=== PATIENT | female | born 1945 | race Caucasian/White ===

== ENCOUNTER 2024-04-17 10:20 | Outpatient (REF) | payer MEDICARE, BC, SELFPAY ==
[2024-04-17 15:04] LABS: CT PCR NOT DETECTED (Not Detect.); NG PCR NOT DETECTED (Not Detect.)
[2024-04-18 08:07] LABS: HBsAGNum1 0.23 S/CO (0.00-0.99); HIV AB/AG Nonreactive (Nonreactive); HIV Num 1 0.04 S/CO (0.00-0.99); Hepatitis B Surface Antigen Negative (Negative); ~Hepatitis C Antibody Nonreactive (Nonreactive)
[2024-04-18 08:23] LABS: Syphilis Screen Nonreactive (Nonreactive)
== END 2024-04-17 10:21 | disposition home or self-care (01) ==
LOC: HO.MANLDS 10:20
PROVIDERS: Visit Provider Physician Assistant
DX: Z11.3 Encounter for screening for infections with a predominantly sexual mode of transmission (principal)
CPT/HCPCS: 86780; 86803; 87340; 87389; 87491; 87591

== ENCOUNTER 2025-02-14 15:24 | Outpatient (AMB) | payer MEDICARE, BC, SELFPAY ==
--- NOTE | 2025-02-14 15:52 | A.OFFVIS_ITS ---
Vital Signs 02/14/25 15:53 Height 5 ft 1 in Weight 93 lb 6 oz BMI 17.6 BP 150/76 H Blood Pressure Location Rt brachial Position Sitting Pulse 73 Pulse Source Pulse Oximeter Pulse Oximetry (%) 97 Oxygen Delivery Method Room Air Intake Visit Reasons: Nontuberculous Mycobacterial Infection Allergies amoxicillin (From Augmentin) Allergy (Intermediate, Verified 02/14/25 16:25) Hives clavulanic acid (From Augmentin) Allergy (Intermediate, Verified 02/14/25 16:25) Hives levofloxacin (From Levaquin) Allergy (Intermediate, Verified 02/14/25 16:25) Hives Latex, Natural Rubber Allergy (Mild, Verified 02/14/25 16:00) Rash enoxaparin (From Lovenox) Allergy (Verified 02/14/25 16:00) Difficulty Breathing HPI HPI Nontuberculous Mycobacterial Infection: Details: Sanjay is a pleasant 79-year-old female, never smoker, with h/o ovarian cancer s/p chemo and hysertectomy 2007 . She was referred by PCP for pulmonary evaluation. She reports persistent respiratory symptoms following pneumonia. Her symptoms began on November 26 with severe illness, leading her to seek urgent care on November 28, where she was prescribed a ten day course of Augmentin. Despite treatment, her symptoms persisted, and she was prescribed levofloxacin, which caused gastrointestinal upset and could not tolerate. A second course of Augmentin was given, along with prednisone, but she continued to feel unwell and experienced significant fatigue. A CT scan performed four weeks prior to the visit showed multifocal tree-in-bud opacities and mild bronchiectasis, suggesting an infectious or inflammatory process. There is a suspicion of nontuberculous mycobacterial disease, but no definitive diagnosis has been made without sputum testing. She reports moderate improvement since antibiotics however continues with cough, dyspnea and fatigue. The patient has a history of ovarian cancer treated with hysterectomy and chemotherapy, which caused significant hematological side effects. She denies any history of asthma but reports seasonal allergies and past exposure to secondhand smoke. Review of Systems Const Denies chills, Denies excessive sweating, Denies fever(s), Denies headache(s) and Denies night sweats Eyes Denies dry eyes, Denies irritation and Denies itchy eyes ENT Reports Normal hearing present, Denies headache(s), Denies nasal congestion, Denies nasal discharge, Denies post nasal drip and Denies sore throat Card Denies chest pain, Denies chest pain at rest, Denies chest pain with activity, Denies claudication, Denies leg edema, Reports dyspnea on exertion, Denies o rthopnea and Denies paroxysmal nocturnal dyspnea Resp Reports chest congestion, Reports cough, Denies excessive phlegm production, Denies pain on inspiration, Denies pain with cough, Reports dyspnea on exertion, Denies stridor and Denies wheezing Musc Denies myalgias Neuro Reports Normal hearing present and Denies headache(s) Endo Denies excessive sweating Epifanio/Lymph Denies lymphadenopathy Aller/Immun Denies itchy eyes, Denies seasonal rhinorrhea and Denies wheezing Physical Exam Vital Signs: Last Vital Signs Pulse 73 02/14/25 15:53 BP 150/76 H 02/14/25 15:53 Pulse Ox 97 02/14/25 15:53 Oxygen Delivery Method Room Air 02/14/25 15:53 BMI result Body Mass Index 17.6 Const General: cooperative, healthy appearing, comfortable, no acute distress, well developed and alert Nutritional Appearance: thin Orientation/consciousness: patient oriented x3 Limitations: no limitations HEENT Head: Yes normal to inspection, Yes normocephalic and Yes atraumatic Ears: hearing grossly normal bilaterally and external ears normal Eyes General: appearance normal, both eyes and all related structures Eyelids: Yes eyelids normal Sclerae: sclerae normal EOM: EOMs intact bilaterally Neck Neck: Yes normal visual inspection and Yes no lymphadenopathy Lymphatic: no lymphadenopathy noted Chest Chest palpation & inspection: normal inspection of the chest Resp Effort & Inspection: normal respiratory effort, able to speak in complete sentences, no audible wheezes, no cough, no stridor, not tachypneic, no tripod positioning and no use of accessory muscles Auscultation: clear to auscultation bilaterally Cardio Jugular venous distension: no JVD Rate: regular rate Rhythm: regular rhythm Skin Other: warm, dry General skin exam: no rashes or lesions noted Neuro General: patient oriented x3 Cranial nerves: Yes Normal hearing present Cognition (Neuro): normal cognition Gait exam (Neuro): Normal gait present Extrem General: Yes normal to inspection, Yes capillary refill normal, Yes no clubbing, cyanosis or edema and Yes no pedal edema Psych Appearance: grossly normal and well kempt Speech and movement: Normal speech and movement present and Clear speech present Affect: normal affect Attitude: cooperative Thought process: Normal thought process present Thought content: Normal thought content present Insight: Good insight present (Psych) Judgement: Good judgement present (Psych) Assessment & Plan Assessment & Plan (1) Cough: Code(s): R05.9 - Cough, unspecified Category: Medical (2) Dyspnea on exertion: Code(s): R06.09 - Other forms of dyspnea Category: Medical Plan We discussed the findings of the CT scan, which showed multifocal tree-in-bud opacities and mild bronchiectasis, suggesting an infectious or inflammatory process. We reviewed the possibility of nontuberculous mycobacterial disease and the need for sputum culture or bronchoscopy if symptoms persist. Will also attempt to obtain images from prior CT. Explained the potential need for a repeat CT scan in six to eight weeks to monitor changes since she had an additional course of antibiotics and presnisone. Emphasized the importance of avoiding allergens and irritants. All questions were answered and patient is in agreement of plan. Will follow up in 4-6 weeks or sooner if needed. Coding Level of Care Code New Pt Level 4 (30778) Diagnoses Cough R05.9 Dyspnea on exertion R06.09
[2025-02-14 15:53] VITALS: BP 150/76; PULSE 73; O2SAT 97; BMI 17.6
== END 2025-02-14 16:51 | disposition home or self-care (01) ==
LOC: HO.HPSW 15:25
PROVIDERS: PCP Physician Assistant; Referring Provider Physician Assistant; Visit Provider Nurse Practitioner Family
DX: R05.9 Cough, unspecified (principal); R06.09 Other forms of dyspnea
CPT/HCPCS: 99204

== ENCOUNTER → 2025-02-14 15:24 | Outpatient (BNVA) | payer MEDICARE, BC, SELFPAY | PROVIDERS: PCP Physician Assistant; Referring Provider Physician Assistant; Visit Provider Nurse Practitioner Family | DX: R06.09 Other forms of dyspnea (principal); R05.9 Cough, unspecified | CPT/HCPCS: 99202 ==

== ENCOUNTER 2025-04-03 15:10 | Outpatient (REF) | payer MEDICARE, BC, SELFPAY ==
--- OUTSIDE RECORDS SUMMARY | 2025-04-03 15:13 | XMS_ITS | Clinical Summary ---
Author Organization [facility] Address [address] [place] [address] Care Team Providers Care Solution Specialist Name Role Phone Nadiya Bowen PA-C Primary Care Provider [phone] Social History Tobacco Use Types Packs/Day Years Used Date Smoking Tobacco: Never Assessed Comments Unknown Sex and Gender Information Value Date Recorded Sex Assigned at Female 06/06/2023 4:13 PM EDT Legal Sex Female 11:43 AM EDT Gender Identity Female 06/06/2023 4:13 PM EDT Sexual Orientation Heterosexual (straight) 06/06 4:13 PM EDT Last Filed Vital Signs Vital Sign Reading Time Taken Comments Blood Pressure - - Pulse - - Temperature - - Respiratory Rate - - Oxygen Saturation - - Inhaled Oxygen Concentration - - Weight 44 kg (97 lb) 06/05/2024 2:11 PM EDT Height 152.4 cm (5') 06/05/2024 2:11 PM EDT Body Mass Index 18.94 06/05/2024 2:11 PM EDT Plan of Treatment Health Maintenance Due Date Last Done Comments Hepatitis C Virus Screening 1945 DTaP/Tdap/Td Vaccines (1 - Tdap) 1965 Pneumococcal Vaccines 50+ (1 of 1 - PCV) 1996 Zoster (Shingles) Vaccine (1 of 2) 1996 DXA Bone Density (Females,Ages 65 and older) 2011 RSV Vaccine 60 years and older and Patients (1 - 1-dose 75+ series) 2021 COVID-19 Vaccine (3 - season) 2024 10/09/2020, 09/18/2020 Influenza Vaccine 03/28/2025 05/17/2023, , 05/16/2021, Additional history exists Hepatitis B Vaccines Aged Out No long er eligible based on patient's age to complete this topic Goals Goal Patient Goal Type Associated Problems Recent Progress Patient-Stated? Author OT LTG 1 Occupational Therapy Corazon Asif OT Note: Pt will be measured and fit for new day and nighttime compression garments, and will be I with wear and care. Pt will be I with home program including use of compression garments, skin care, and exercise routine[place] [id number] [facility] MEDICARE PART A & B Care Teams Solution Specialist Relationship Specialty Start Date End Date Nadiya Bowen PA-C [facility] [place] [id number] PCP - General Internal Medicine 06/10/24
--- OUTSIDE RECORDS SUMMARY | 2025-04-03 15:13 | XMS_ITS | Clinical Summary ---
Author Organization [facility] Address [address] [place] [address] Phone Care Team Providers Care Mill Tender Name Role Phone Misbah Alvarado DO Primary Care Provider [phone] Bharath Sullivan DO Unavailable [phone] Allergies Active Allergy Reactions Criticality Noted Date Comments Enoxaparin Anaphylaxis 04/07/2009 rash, throat tightening and trouble breathing. Latex Rash Medium 04/07/2009 Naproxen Hives 02/23/2020 Nsaids (Non-Steroidal Anti-Inflammatory Drug) Rash Medium 04/07/2009 07/10/22 - PT states it's only naproxen that she is allergic to. She tolerates ASA and ibuprofen. Medications LORazepam (ATIVAN) 0.5 MG tablet 1 tablet at bedtime as needed Orally Once a day Active HYDROmorphone (DILAUDID) 2 MG tablet hydromorphone 2 mg tablet TAKE 1 TABLET BY MOUTH TWICE DAILY ALTERNATING THREE TIMES DAILY Active lidocaine (LMX 5) 5 % Crea lidocaine 5 % topical cream APPLY A THIN LAYER TO AREAS OF PAINFUL SKI 1 TO 2 TIMES DAILY NEEDED Active mupirocin (BACTROBAN) 2 % ointment mupirocin 2 % topical ointment Active albuterol (PROAIR HFA) 90 mcg/actuation inhaler Inhale 2 puffs into the lungs every 4 (four) hours as needed for wheezing. 18 g 5 Active benzonatate (TESSALON) 100 MG capsule Take 2 capsules (200 mg total) by mouth 3 (three) times a day as needed for cough. 21 capsule 5 Active inhaler spacing device (AEROCHAMBER,B REATHERITE) Spcr Inhale 1 each into the lungs every 4 (four) hours as needed (with inhaler). 1 each 5 Active Active Problems Problem Noted Date Diagnosed Date Right ankle pain 07/05/2020 Anxiety 01/10/2018 Complex regional pain syndrome 01/10/2018 Seasonal allergies 01/10/2018 Malignant tumor of ovary 08/09/2012 Overview (10/17/2014): Malignant tumor of ovary Immunizations Immunization Administration Dates Next Due INFLUENZA, SPLIT VIRUS, TRIVALENT PF 05/03/2020 Influenza High-Dose Quadriva lent Preservative Free IM 05/25/2022 Influenza High-Dose Trivalen t Preservative Free IM 06/02/2019,07/04/2018,06/19/2016 Influenza Quadrivalent Adjuv anted Preservative Free IM 05/16/2021 Influenza Quadrivalent w/ Preservative IM 2018,07/09/2018 Influenza Trivalent Adjuvant ed Preservative free IM 06/07/2017 Pneumococcal conjugate PCV13 05/20/2016 Zoster live 01/11/2019 Zoster recombinant 04/11/2019,01/11/2019 Family History Medical History Relation Comments Cancer Father Hypertension Father Hypertension Mother Relation Status Comments Father Mother Social History Tobacco Use Types Packs/Day Years Used Date Smoking Tobacco: Never Smokeless Tobacco: Never Tobacco Cessation:Counseling Given: Not Answered Alcohol Use Standard Drinks/Week Comments Not Asked 0 (1 standard drink = 0.6 oz pur e alcohol) no Education Answer Date Recorded Are you interested in more education? Not on marcella e 12/24/2022 Are you concerned about learning? Not on file 12/24/2022 No 12/24/2022 No 12/24/2022 Digital Access Answer Date Recorded No 01/22/2023 No 01/22/2023 Reliable internet access at home? Not on file 01/22/2023 Device with a working camera? Not on file Comments Unknown Sex and Gender Information Value Date Recorded Sex Assigned at Not on file Legal Sex Female 6:45 PM EST Gender Identity Not on file Sexual Orientation Not on file Last Filed Vital Signs Vital Sign Reading Time Taken Comments Blood Pressure 174/82 10/29/2023 4:30 PM EST Pulse 64 10/29/2023 4:30 PM EST Temperature 37.2 C (98.9 F) 10/29/2023 4:30 PM EST Respiratory Rate 18 10/29/2023 4:30 PM EST Oxygen Saturation 98% 10/29/2023 4:30 PM EST Inhaled Oxygen Concentration - - Weight 43.1 kg (95 lb) 07/10/2022 10:26 AM EST Height 152.4 cm (5') 07/10/2022 10:26 AM EST Body Mass Index 18.55 07/10/2022 10:26 AM EST Plan of Treatment Health Maintenance Due Date Last Done Comments LIPID PANEL 1945 DEPRESSION SCREENING 1958 HEPATITIS C SCREENING 1964 OSTEOPOROSIS SCREENING INITIAL (ONE-TIME) 2011 PNEUMOCOCCAL VACCINES (50+ years) (2 of 2 - PPSV23) 07/15/2016 05/20/2016 RSV VACCINE (1 - 1-dose 75+ series) 2021 COVID-19 VACCINE ( - season) 2024 05/05/2022, 11/26/2021, 06/04/2021, Additional history exists Adult Td,Tdap Booster 06/17/2034 06/17/2024 ZOSTER VACCINES Completed 04/11/2019, 12/26, 01/11/2019 SMOKING STATUS SCREENING (Once After 26 Yrs) Completed 11/28/2024 HEPATITIS A VACCINES Aged Out No long er eligible based on patient's age to complete this topic HIB VACCINES Aged Out No longer eligi ble based on patient's age to complete this topic MENINGOCOCCAL VACCINES (ACWY) Aged Out No longer eligible based on patient's age to complete this topic MENINGOCOCCAL VACCINES (B) Aged Out N o longer eligible based on patient's age to complete this topic Medical Devices Not on file Insurance MEDICARE PART A & B [employer] PCP REQ SUPPLEMENT MEDICARE PART A & B [employer] PCP REQ SUPPLEMENT MEDICARE PART A & B [facility] PCP REQ SUPPLEMENT MEDICARE PART A & B [facility]PP[facility] MEDICARE PART A & B [facility] P[facility] REQ SUPPLEMENT MEDICARE PART A & B [employer] PCP REQ SUPPLEMENT MEDICARE PART A & B [employer] PCP REQ SUPPLEMENT MEDICARE PART A & B [facility] PCP REQ SUPPLEMENT MEDICARE PART A & B [facility] MEDEX PCP REQ SUPPLEMENT [employer] Care Teams Mill Tender Relationship Specialty Start Date End Date Misbah Alvarado DO PCP - General 01/02/15 Bharath Sullivan DO [address] [place] [address] Orthopedics & Sports Medicine, [place] [address] Historical LMR Provider 06/12/17 Additional Source Comments The information contained in this document represents components of the legal health record. It is not the complete legal health record.[facility]
== END 2025-04-03 15:11 | disposition home or self-care (01) ==
LOC: CF 15:10
DX: Z13.89 Encounter for screening for other disorder (principal)